=== PATIENT | male | born 1980 | race Caucasian/White ===

== ENCOUNTER 2016-10-10 21:54 | Emergency (ER) | payer OTHER ==
[~2016-10-10] VITALS: Ht 177.8 cm; Wt 131.1 kg
[~2016-10-10 21:54] MED LIST: BENADRYL ALLERG25 MG PO; ERGOCALCIF50000 UNIT PO; HYCODAN SYRUP480 ML PO; OCUFLOX 0.100 DROP/5 LEFT EYE; PEPCID40 MG PO; PREDNISONE20 MG PO; ULTRAM50 MG PO
[2016-10-10] MEDS ORDERED: MEDROL DOSEPAK4 MG PO (22:42)
[2016-10-10 22:55] VITALS: BP 129/71
== END 2016-10-10 22:56 | disposition home or self-care (01) ==
LOC: EME 21:54 → EXP 21:54
DX: L23.7 Allergic contact dermatitis due to plants, except food (principal)
CPT/HCPCS: 99281; 99283; J7512